=== PATIENT | female | born 1940 | race Caucasian/White ===

== ENCOUNTER 2021-02-25 13:55 | Inpatient (IN) | payer MEDICARE ==
[~2021-02-25] VITALS: Ht 152.4 cm; Wt 53.7 kg
[2021-02-25 14:25] VITALS: BP 153/63
[2021-02-25] MEDS ORDERED: PLEASE ENTER HEIGHT AND WEIGHT MC SCH (14:30)
[2021-02-25] MEDS ORDERED: PLEASE ENTER ALLERGIES MC SCH (14:30)
[2021-02-25] MEDS ORDERED: ESTR0.45 PO (14:32)
[2021-02-25] MEDS ORDERED: MELATONIN 5 MG TABLET PO PRN (15:00)
[2021-02-25] MEDS ORDERED: ONDANSETRON 2MG/ML, 2ML IVPush PRN (15:00)
[2021-02-25] MEDS ORDERED: ENALAPRILAT 1.25 MG/ML, 2ML IVPush PRN (15:00)
[2021-02-25] MEDS ORDERED: HYDROcodone/APAP 5/325 TABLET PO PRN (15:00)
[2021-02-25] MEDS: SODIUM CHLORIDE 0.9% 1,000 ML IV SCH ×3 (15:00→22:30)
[2021-02-25] MEDS ORDERED: FENTANYL PF 100 MCG/2ML ONE (15:49)
[2021-02-25] MEDS ORDERED: MIDAZOLAM 1 MG/ML, 5ML ONE (15:49)
[2021-02-25] MEDS ORDERED: CEFAZOLIN PMX 1GM/50ML 50 ML ONE (15:49)
[2021-02-25] MEDS ORDERED: CEFAZOLIN 1,000 MG ONE (15:49)
[2021-02-25] MEDS ORDERED: LIDOCAINE 1%, 20ML ONE (15:49)
[2021-02-25] MEDS ORDERED: LIDOCAINE 2%, 20ML ONE (16:26)
[2021-02-25] MEDS ORDERED: HOLD MEDICATION MC PRN (17:30)
[2021-02-25] MEDS ORDERED: ACETAMINOPHEN 325 MG TABLET PO PRN (17:30)
[2021-02-25 18:10] VITALS: BP 166/71
[2021-02-25] MEDS: FLECAINIDE 50MG TABLET PO SCH (18:14)
[2021-02-25] MEDS: ACETAMINOPHEN 325 MG TABLET PO PRN (20:09)
[2021-02-25] MEDS: SODIUM CHLORIDE FLUSH 10ML SYR IVF SCH (20:10)
[2021-02-26] MEDS: CEFAZOLIN PMX 1GM/50ML 50 ML IVPB SCH ×2 (00:07→07:59)
[2021-02-26 00:50] VITALS: BP 115/74
[2021-02-26] MEDS: ACETAMINOPHEN 325 MG TABLET PO PRN ×2 (01:11→08:36)
[2021-02-26] MEDS: SODIUM CHLORIDE 0.9% 1,000 ML IV SCH (04:20)
[2021-02-26 05:22] LABS: BASOPHILS % (AUTO) 1 % (0-1); EOSINOPHILS % (AUTO) 4 % (1-7); LYMPHOCYTES % (AUTO) 22 % (22-44); MEAN CORPUSCULAR HEMOGLOBIN 33.5 pg (27.0-34.8); MEAN PLATELET VOLUME 11.5 fL (7.4-10.4); MONOCYTES % (AUTO) 11 % (2-9); NEUTROPHILS % (AUTO) 63 % (42-75); PLATELET COUNT 148 x10^3/uL (130-400); RED BLOOD COUNT 4.32 x10^6/uL (3.82-5.3); RED CELL DISTRIBUTION WIDTH 13.5 % (9.6-15.2)
[2021-02-26 05:23] LABS: ALANINE AMINOTRANSFERASE 28 U/L (12-78); ANION GAP 6 mmol/L (5-15); CALCIUM 8.5 mg/dL (8.5-10.1); CHLORIDE 110 mmol/L (98-107); CREATININE 0.64 mg/dL (0.55-1.02)
[2021-02-26 05:24] LABS: MD NO
[2021-02-26 05:26] LABS: ALKALINE PHOSPHATASE 89 U/L (45-117); BILIRUBIN,TOTAL 0.5 mg/dL (0.2-1.0); TOTAL PROTEIN 6.2 g/dL (6.4-8.2)
[2021-02-26] MEDS: SODIUM CHLORIDE FLUSH 10ML SYR IVF SCH (08:05)
[2021-02-26] MEDS ORDERED: METOPROLOL SUCCINATE 25 MG TAB.ER.24H PO SCH (08:30)
[2021-02-26 08:32] VITALS: BP 116/79
[2021-02-26] MEDS ORDERED: APIX5TAB PO ×5 (08:35→15:02)
[2021-02-26] MEDS ORDERED: METO25TA91 PO ×5 (08:35→15:02)
[2021-02-26] MEDS ORDERED: TEMPLATE NON-FORMULARY MED. (Estrogens, Conjugated** (Premarin**) 0.45 MG) HOMEMEDPO SCH (09:00)
[2021-02-26] MEDS ORDERED: ATOR40TA PO ×3 (09:41→15:02)
[2021-02-26] MEDS ORDERED: FLEC50TA25 PO ×3 (10:18→15:02)
[2021-02-26] MEDS: FLECAINIDE 50MG TABLET PO SCH (10:51)
== END 2021-02-26 11:30 | disposition home or self-care (01) | DRG 242 ==
LOC: 5SO 13:56
PROVIDERS: ADMIT Internal Medicine Cardiovascular Disease; ATTEND Internal Medicine Cardiovascular Disease
PROC: 0JH606Z Insertion of Pacemaker, Dual Chamber into Chest Subcutaneous Tissue and Fascia, Open Approach (ICD-10-PCS; principal; 2021-02-25)
PROC: 02HK3JZ Insertion of Pacemaker Lead into Right Ventricle, Percutaneous Approach (ICD-10-PCS; 2021-02-25)
PROC: 02H63JZ Insertion of Pacemaker Lead into Right Atrium, Percutaneous Approach (ICD-10-PCS; 2021-02-25)
DX: I49.5 Sick sinus syndrome (principal); I63.40 Cerebral infarction due to embolism of unspecified cerebral artery; D68.69 Other thrombophilia; I48.92 Unspecified atrial flutter; E78.5 Hyperlipidemia, unspecified; I34.0 Nonrheumatic mitral (valve) insufficiency; I10 Essential (primary) hypertension; I48.0 Paroxysmal atrial fibrillation; Z82.3 Family history of stroke; Z86.73 Personal history of transient ischemic attack (TIA), and cerebral infarction without residual deficits; Z90.710 Acquired absence of both cervix and uterus; Z88.2 Allergy status to sulfonamides; Z79.899 Other long term (current) drug therapy; Z90.49 Acquired absence of other specified parts of digestive tract
CPT/HCPCS: 33208; 36005; 36415; 71045; 80053; 83735; 84100; 85025; 93005; 99156; C1779; C1785; C1892; G0378; J0690; J2250; J3010; J7030; Q9967